=== PATIENT | male | born 1965 | race Caucasian/White ===

== ENCOUNTER 2017-12-26 21:46 | Emergency (ER) | payer MEDICAID, SELFPAY ==
[2017-12-26 21:47] VITALS: BP 154/100; PULSE 80; RESP 16; TEMP 36.3; O2SAT 98; BMI 35.6
--- NOTE | 2017-12-26 22:40 | RAD_ITS ---
STUDY: X-RAY - UNILATERAL RIBS ( RIGHT ) WITH CHEST REASON FOR EXAM: Male, 52 years old. Posterior rib pain. TECHNIQUE - RIBS: 4 view(s) of the ribs. TECHNIQUE - CHEST: PA COMPARISON: None. FINDINGS - RIBS: Normal visualized ribs without a demonstrated fracture. FINDINGS - CHEST: The lungs are clear and expanded. There is no demonstrated pleural abnormality. Normal size heart. Normal mediastinum and king. Normal visualized pulmonary arteries. Normal visualized aortic arch and descending thoracic aorta. Normal visualized thoracic spine. Normal visualized ribs, clavicles, and shoulders. There is no demonstrated abnormality of the visualized soft tissue structures of the upper abdomen. RAD/Ribs Uni Min 3V w/PA Chest IMPRESSION: RIBS: No acute osseous injury. CHEST: No acute cardiopulmonary process. Electronically Signed: Cheryl Marcum MD at 23:00 EDT Tel , Service support ,
[2017-12-26] MEDS: Lidocaine 5% Patch 1 PATCH TOPICAL (22:46)
[2017-12-26] MEDS: Ketorolac 30 MG/ML Syringe IM (22:46)
--- NOTE | 2017-12-26 23:19 | ED.VISSUMM ---
- ER Visit Summary Date of Service: 12/26/17 Chief Complaint: Back pain History of Present Illness: The patient is a 52 M presenting for evaluation secondary to back pain. Patient states that since today he woke up with right-sided posterior rib pain. He denies that there is any sort of injury associated with this. Pain is continuous and seems to cause a mild amount of tingling in his right hand. Denies any bowel or bladder incontinence, denies any fevers, denies any sort of radiation of the legs. Patient states that he does have a history of back pain in the past, but this seems somewhat different. Review of systems otherwise negative. Physical Examination: Vitals: Within normal limits General: Well-nourished well-developed no acute distress Head: Normocephalic atraumatic ENT: Moist mucous membranes Neck: Supple no JVD Cardiovascular: Heart regular rate and rhythm no murmurs Respiratory: Respirations nondistressed, lung sounds clear to auscultation bilaterally Abdominal: Soft, nontender, nondistended, normal bowel sounds, no evidence of abdominal masses or pulsatile mass Back: Normal to inspection, no midline tenderness to palpation, straight leg raise negative bilaterally, tenderness over the right posterior rib line without any evidence of step-offs crepitus or deformity Extremities: Nontender, nonedematous, 2+ radial and PT pulses bilaterally symmetric Skin: Normal color no rash Neuro: 5/5 strength hip flexion, knee flexion, knee extension, dorsiflexion, plantarflexion, EHL. Sensation intact over all dermatomes of the lower extremities bilaterally, 2+ brachioradialis reflexes bilaterally, normal strength of the upper extremities Test Results: Right-sided rib series found to be negative Emergency Department Course and Treatment: Patient presented for evaluation secondary to back pain. X-rays were found to be negative. Patient was given Toradol lidocaine patch and had symptomatic improvement on repeat evaluation. At this point I believe he can safely be discharged that this likely is a thoracic strain. He will be sent home with Naprosyn Flexeril and lidocaine patches. Disposition: Discharge Impression: 1. Right-sided thoracic strain This note was generated with [employer] dictation software. It may contain incorrect words, spelling, and punctuation that were not noted in review of the chart prior to signing ED Disposition - Plan for ED Patient: Disposition: Home or Assisted Living Chief Complaint: Back Diagnosis: Thoracic myofascial strain Instructions: ED Strain Chest Wall Prescriptions: Lidocaine [Lidoderm] 1 ea TP DAILY #10 adh..patch Naproxen [Naprosyn] 500 mg PO BID PRN #20 tab Cyclobenzaprine [Flexeril] 10 mg PO TID PRN #20 tab PRN Reason: Muscle Spasm Referrals: Bruce Barron DO [Primary Care Provider] - 1 Week if not improving
[2017-12-26 23:37] VITALS: BP 147/92; PULSE 90; RESP 20; O2SAT 96
--- NOTE | 2017-12-28 12:52 | ED.RN ---
brandi resendiz called about verification for flexeril script d/t not being signed. verified d/c orders script
== END 2017-12-26 23:38 | disposition home or self-care (01) ==
PROVIDERS: Emergency Provider Emergency Medicine; Family Provider Family Medicine; PCP Family Medicine
DX: S29.012A Strain of muscle and tendon of back wall of thorax, initial encounter (principal); X58.XXXA Exposure to other specified factors, initial encounter; Y93.9 Activity, unspecified; Y92.89 Other specified places as the place of occurrence of the external cause; Y99.9 Unspecified external cause status; Z72.0 Tobacco use
CPT/HCPCS: 71101; 99283

== ENCOUNTER 2019-04-27 10:59 | Emergency (ER) | payer BC, SELFPAY ==
[2019-04-27 11:00] VITALS: BP 155/106; PULSE 77; RESP 16; TEMP 36.8; O2SAT 99; BMI 34.2
--- NOTE | 2019-04-27 11:04 | EKG12_ITS ---
Test Reason : CP Blood Pressure : / mmHG Vent. Rate : 068 BPM Atrial Rate : 068 BPM P-R Int : 190 ms QRS Dur : 104 ms QT Int : 390 ms P-R-T Axes : 031 -32 009 degrees QTc Int : 414 ms Normal sinus rhythm Left axis deviation Abnormal ECG Confirmed by DARELL MURILLO, DAVID ([id number]), supervising film or videotape editor KARRIE JUAREZ ([id number]) on 04/30/2019 11:08:42 AM Referred By: SARAH Confirmed By:DAVID LOZOYA MD
[2019-04-27 11:42] VITALS: BP 147/98; PULSE 65; RESP 16; O2SAT 96
[2019-04-27 11:54] LABS: Absolute Lymphocyte Count 1.35 X10^3/uL (0.83-4.51); Absolute Neutrophil Count 5.3 X10^3/uL (2.0-7.7); Basophil# 0.06 X10^3/uL; Basophil% 0.8 % (0-1); Eosinophil# 0.11 X10^3/uL; Eosinophils% 1.5 % (0-5); Hematocrit 44.3 % (40-54); Hemoglobin 15.2 g/dL (13.0-16.5); Lymphocyte # 1.35 X10^3/ul (4.0); Lymphocyte % 18.4 % (19-41); Mean Corp Hgb Conc 34.3 g/dL (32-36); Mean Corpuscular Hgb 30.6 pg (27.0-32.0); Mean Corpuscular Volume 89.1 fL (80-94); Mean Platelet Vol. 9.3 fl (6.2-12.0); Monocyte# 0.52 X10^3/uL; Monocyte% 7.1 % (0-10); NRBC Flagged by Analyzer 0 % (0-5); Neutrophil # 5.29 X10^3/uL (2.7-7.7); Neutrophil % 71.9 % (47-70); Platelet Count 322 K/mm3 (150-450); RBC Distribution Width CV 11.9 % (11.6-14.6); RBC Distribution Width SD 38.2 fl (35.1-43.9); Red Blood Count 4.97 M/mm3 (4.6-6.2); White Blood Count 7.4 K/mm3 (4.4-11.0)
[2019-04-27 12:10] LABS: Anion Gap 7 (5-15); BUN 12 mg/dL (7-18); BUN/Creat Ratio 13.9 RATIO (10-20); Chloride 107 mmol/L (98-107); Creatinine, Serum 0.86 mg/dL (0.70-1.30); EST Glomerular Filtration Rate 98 mL/min (>60); Est Glom Filt Rate - Afr Amer 119 mL/min (>60); Estimated Creatinine Clearance 110.97 ml/min; Glucose 120 mg/dL (74-106); Potassium 3.7 mmol/L (3.5-5.1); Sodium Level 138 mmol/L (136-145)
--- NOTE | 2019-04-27 12:13 | CT_ITS ---
STUDY: CT BRAIN WITHOUT CONTRAST REASON FOR EXAM: Male, 54 years old. Headaches. Chest pain and shortness of breath. RADIATION DOSAGE (If Supplied By Facility): CTDIvol = ( 44.99 ) mGy, DLP = ( 863.60 ) mGycm TECHNIQUE: Transaxial CT imaging of the brain was performed without administration of intravenous contrast material. Individualized dose optimization techniques were used for this CT. COMPARISON: No relevant priors. FINDINGS: Normal soft tissue structures. Normal calvarium. Normal size ventricles and extra-axial spaces for the patient's age. Normal white matter tracts of the cerebral hemispheres. Normal basal ganglia and thalami. Normal brainstem. Normal cerebellum. There is no intracranial hemorrhage. There are no findings of an acute ischemic infarction. Nodular mucosal thickening along the inferior aspect of the maxillary sinuses bilaterally. CT/Brain/Head without Contrast IMPRESSION: Mucosal thickening along the inferior aspect of the maxillary sinuses bilaterally. Electronically Signed: Wayne Guillermo, at 12:46 EDT , Service support ,
--- NOTE | 2019-04-27 12:36 | RAD_ITS ---
STUDY: X-RAY CHEST REASON FOR EXAM: Male, 54 years old. Chest pain and shortness of breath. TECHNIQUE: PA and lateral views of the chest. COMPARISON: None. FINDINGS: EKG electrodes are seen. The lungs are clear and expanded. There is no demonstrated pleural abnormality. Normal size heart. Normal mediastinum and king. Normal visualized pulmonary arteries. Normal visualized aortic arch and descending thoracic aorta. There are diffuse degenerative changes of the visualized thoracic spine. Normal visualized ribs, clavicles, and shoulders. There is no demonstrated abnormality of the visualized soft tissue structures of the upper abdomen. RAD/Chest PA and Lateral IMPRESSION: No acute abnormality is seen. Electronically Signed: Wayne Guillermo, at 13:00 EDT , Service support ,
[2019-04-27] MEDS: DiphenhydrAMINE 50 MG/ML Syringe 25 MG IV (12:50)
[2019-04-27] MEDS: 0.9% Normal Saline 1,000 ML 999 ML IV (12:50)
[2019-04-27] MEDS: proCHLORPERazine 10 MG/2 ML Vial IV (12:52)
[2019-04-27] MEDS: Ketorolac 30 MG/ML Syringe IV (12:53)
[2019-04-27 12:54] VITALS: PULSE 64; RESP 16; O2SAT 94
[2019-04-27 13:53] VITALS: BP 141/104; PULSE 51; RESP 16; O2SAT 94
--- NOTE | 2019-04-27 14:20 | ED.VIS.GEN ---
History of Present Illness Chief Complaint: Chest Pain Narrative: Patient presented with multiple chief complaints. Patient has an underlying history of hypertension and smoking. Patient states that over the course of the last 3 weeks he has been dealing with a headache. He reports that this is basically a daily headache, but never goes away. He does not really have any exacerbating relieving factors and has not been alleviated by [id number] analgesics. Has been associated with any sort of visual changes numbness or weakness, but is associated with some photophobia and nausea. No recent head injuries to speak of. Patient states that he has hypertension that is poorly controlled, and reports that today he was feeling extremely stressed and had a fleeting moment of chest pain. He describes this as a sharp type pain that was associated with some lightheadedness. Again no exacerbating relieving factors. He denies any cardiovascular history, no history of cardiac work-ups in the past. He denies any DVT or PE risk factors. Review of systems otherwise negative. Past Medical History - Allergies and Home Meds Allergies/Adverse Reactions: Allergies No Known Allergies Allergy (Verified 04/27/19 10:59) Primary Care Physician: Dominick Schuler MD [Primary Care Provider] - 5-7 Days Past Medical History: - - Hypertension Surgical History: - - nasal septal surgery. Smoking Status: Current every day smoker Review of Systems All systems negative except as indicated Cardiovascular: Reports: Chest pain Neurological: Reports: Headache Physical Exam Vital Signs/Narrative: Vital Signs Temp Pulse Resp BP Pulse Ox 04/27/19 13:53 51 L 16 141/104 H 94 04/27/19 12:54 64 16 94 04/27/19 11:42 65 16 147/98 H 96 04/27/19 11:00 98.3 F 77 16 155/106 H 99 Inital Vital Signs reviewed: Yes General: Well nourished, Well developed, No Acute Distress Head: Normocephalic, Atraumatic, - - No temporal artery tenderness to palpation Eyes: Perrl, EOMI, - - Fundi are normal bilaterally with no evidence of retinal hemorrhages ENT: Moist mucous membranes, No rhinorrhea Neck: Supple, Nontender Cardiovascular: Regular rate, Regular rhythm, No murmurs, - - 2+ radial pulses bilaterally symmetric. 2+ PT pulses bilaterally symmetric. Respiratory: No distress, CTA bilaterally, Chest nontender Abdomen: Soft, Nontender, Nondistended, Normal bowel sounds Back: Nontender, Normal Inspection Extremities: Nontender, No edema Skin: Normal color, No rash Neurological: Alert, Oriented x3, Cranial nerves II-XII grossly intact, Normal Strength, Normal Sensation Psychological: Normal affect, Normal Mood Diagnostic/Tx/Re-eval Chest X-Ray - ED: Read by ED Physician, Read by Radiologist, Normal - EKG Initial EKG Interpretation: - - Sinus rhythm at 68 with left axis deviation isoelectric ST segments normal T waves no evidence of acute ischemia or arrhythmia - Medical Decision Making Patient presented with chest pain and headaches. Patient's chest pain work-up was found to be unremarkable including a negative troponin normal EKG and normal chest x-ray. Patient CT brain demonstrated some sinusitis. Patient's pain was treated with Toradol in the emergency department he did have some improvement on subsequent reevaluation. Patient's headache likely secondary to sinusitis will be treated with a course of Augmentin. Patient's chest pain seems rather atypical and his heart score is 3, I do not believe he requires admission. He will follow-up with his primary care physician. ED Disposition - Plan for ED Patient: Disposition: Home or Assisted Living Diagnosis: Sinusitis, Chest pain Instructions: Acute Sinusitis, CHEST PAIN, Uncertain Cause Prescriptions: Amox/Clavulanate Tablet [Augmentin Tablet] 875 mg PO Q12H #28 tab Prescription Printed Referrals: Dominick Schuler MD [Primary Care Provider] - 5-7 Days
[2019-04-27 14:39] VITALS: BP 128/91; PULSE 62; RESP 18; O2SAT 97
== END 2019-04-27 14:40 | disposition home or self-care (01) ==
PROVIDERS: Emergency Provider Emergency Medicine; Family Provider Family Medicine; PCP Family Medicine
DX: J32.9 Chronic sinusitis, unspecified (principal); R07.9 Chest pain, unspecified; I10 Essential (primary) hypertension; Z79.899 Other long term (current) drug therapy; F17.200 Nicotine dependence, unspecified, uncomplicated
CPT/HCPCS: 70450; 71046; 80048; 84484; 85025; 93005; 96361; 96374; 96375; 99284; J7030; A4216

== ENCOUNTER 2023-03-25 20:29 | Emergency (ER) | payer BC, MEDICAID, SELFPAY ==
[2023-03-25 20:30] VITALS: BP 119/89; PULSE 74; RESP 15; TEMP 36.3; O2SAT 98
--- NOTE | 2023-03-25 20:50 | RAD_ITS ---
INDICATION: Trauma, injury with bruising 3rd-5th phalanges EXAMINATION/TECHNIQUE: X-RAY - RIGHT XR Foot Min 3 Views 3 VIEWS COMPARISON: None. FINDINGS: SOFT TISSUES: Forefoot soft tissue swelling. No radiopaque foreign body. BONES/JOINTS: Small cortical fragments at the fifth PIP joint likely from the middle phalanx with cortical irregularity suspicious for nondisplaced fracture of the fifth phalanx. No other findings suspicious for acute fracture. Joint spaces anatomically aligned with degenerative changes of the first MTP joint. No sclerotic or destructive changes observed. RAD/Foot min 3 Views IMPRESSION: Possible nondisplaced fracture fifth middle phalanx. Electronically Signed: Maurilio Ricks MD at 21:55 EDT ,
[2023-03-25] MEDS: oxyCODONE 5 MG Tablet 10 MG PO (22:08)
--- NOTE | 2023-03-25 22:08 | EDS_ITS ---
HPI History of Present Illness Chief Complaint: Lower Extremity Injury Informant: patient Narrative Narrative: 58-year-old male dropped 80 to 100 pounds onto his right foot which is wearing steel toed boots. He notes pain swelling and ecchymosis. He notes limited ability to bear weight. He is not on a blood thinner. [facility] Medical History Foot injury Home Medications amoxicillin 875 mg-potassium clavulanate 125 mg tablet 875 mg (0.875 x 875-125 mg) PO Q12H #28 tabs 04/27/19 [Rx Last Taken Unknown] duloxetine 30 mg capsule,delayed release 30 mg PO DAILY 04/27/19 [History Last Taken Unknown] lisinopril 10 mg-hydrochlorothiazide 12.5 mg tablet 2 tab PO DAILY 04/27/19 [ History Last Taken Unknown] oxycodone 5 mg tablet 5 mg PO Q6H PRN pain 3 days #12 tabs 03/25/23 [Rx Last Taken Unknown] Allergy/AdvReac Type Severity Reaction Status Date / Time No Known Allergies Allergy Verified 03/25/23 20:34 Social History Smoking Status: Unknown if ever smoked ROS ROS ED Constitutional Constitutional ED: Denies chills or weight loss Eyes Eyes: Denies change in vision or diplopia ENT ENT ED: Denies ear pain, rhinorrhea or sore throat Cardiovascular Cardiovascular: Denies chest pain, orthopnea, palpitations or racing heartbeat Respiratory/Chest Respiratory/Chest: Denies cough, dyspnea or orthopnea Gastrointestinal Gastrointestinal: Denies abdominal pain, diarrhea, nausea or vomiting Genitourinary Genitourinary ED: Denies dysuria, hematuria or urinary frequency Musculoskeletal Musculoskeletal: Reports other Details: Right foot pain ; Denies arthralgias or myalgias Integumentary Denies abscess or rash Neurologic Neurologic: Denies headache(s) or weakness Psychiatric Psychiatric: Denies anxiety, depression, suicidal ideation or suicidal thoughts Endocrine Endocrinology: Denies polydipsia, polyphagia or polyuria Allergic/Immunologic Allergic/Immunologic ED: Denies mouth swelling, tongue swelling or urticaria EXAM Physical Exam Const Vital Signs: 03/25/23 20:30 Temperature 97.3 F L Temperature Source Temporal Pulse Rate 74 Respiratory Rate 15 Blood Pressure 119/89 H Blood Pressure Mean 99 Pulse Ox 98 Oxygen Delivery Method Room Air Positive well nourished and well developed General Appearance ED: well developed HEENT Reports normocephalic, head/scalp atraumatic and moist mucous membranes Eyes PERRL and EOMs intact bilaterally Neck no lymphadenopathy, supple and no JVD Resp normal respiratory effort and clear to auscultation bilaterally Cardio regular rate, regular rhythm and no murmurs GI normal to inspection, nondistended, normoactive bowel sounds and non-tender Palpation: soft Back/Spine no CVA tenderness and normal ROM Extremity Extremity Narrative: There is swelling and ecchymosis of the fourth and fifth toe on the right foot. There is also swelling and some mild ecchymosis onto the forefoot to the level of the midfoot of the right foot. Neurovascularly intact. Painful range of motion. There is no subungual hematomas. General Extremety ED: Negative for edema General Extremity: Negative for edema Neuro oriented x3 and CN's II-XII intact bilaterally Sensorium / Orientation: alert Motor Exam: strength 5/5 throughout Psych mental status grossly normal Mood & Affect: Negative for depressed or tearful Skin no rashes or lesions noted and no wounds MDM MDM MDM Narrative Medical decision making narrative: My interpretation of the plain films of the right foot is a nondisplaced transverse fracture through the fourth toe proximal phalanx and the fifth toe middle phalanx. Patient received oxycodone for pain. Prescription for same. He will be placed in a postop shoe and given crutches. I will write him off work for the next several days he should follow-up with podiatry Radiography Diagnostic Testing: Clinical Impression(s) from Imaging Studies Foot X-Ray 03/25/23 20:50 IMPRESSION: Possible nondisplaced fracture fifth middle phalanx. Electronically Signed: Maurilio Ricks MD at 21:55 EDT Reading Location ID and State: [facility] / [place] Tel , Service support , Discharge Plan Triage Chief Complaint: Lower Extremity Injury ED Provider: Dwight Boucher Dx/Rx/DC Orders Clinical Impression: Crush injury of foot, Fracture of toe of right foot Instructions: ED Crush Injury, Foot/Toe, ED Fracture, Toe, Closed Prescriptions: New oxycodone 5 mg tablet 5 mg PO Q6H PRN (Reason: pain) 3 Days Qty: 12 0RF No Action duloxetine 30 MG capsule 30 mg PO DAILY Patient Comments: TAKE 1 CAPSULE BY MOUTH ONCE DAILY lisinopril-hydrochlorothiazide 1 TABLET tablet 2 tab PO DAILY amoxicillin-pot clavulanate 875 MG tablet 875 mg PO Q12H Qty: 28 0RF Primary Care Provider: Dominick Schuler Referrals: Dominick Schuler MD [Primary Care Provider] - Dwight Dean DPM [Med Staff - Active Staff] - 3-5 Days Disposition Disposition: Home, Self Care
== END 2023-03-25 22:23 | disposition home or self-care (01) ==
PROVIDERS: Emergency Provider Emergency Medicine; PCP Family Medicine; Visit Provider Emergency Medicine
DX: S92.514A Nondisplaced fracture of proximal phalanx of right lesser toe(s), initial encounter for closed fracture (principal); S92.524A Nondisplaced fracture of middle phalanx of right lesser toe(s), initial encounter for closed fracture; W20.8XXA Other cause of strike by thrown, projected or falling object, initial encounter
CPT/HCPCS: 73630; 99284

== ENCOUNTER 2023-04-01 12:09 | Emergency (ER) | payer BC, MEDICAID, SELFPAY ==
[2023-04-01 12:10] VITALS: BP 155/105; PULSE 92; RESP 18; TEMP 35.5; O2SAT 99
--- NOTE | 2023-04-01 14:22 | ED.VIS.LOWEX ---
HPI History of Present Illness HPI Narrative: 58-year-old male who has broken toes to his left foot after a shelf broke and the contents of the shelf fell on his foot about a week ago. At that time he was x-rayed. Was diagnosed with a mid phalanx fracture. Today he followed up with Dr. Cristobal who did a repeat x-ray. There was a concern for possible osteomyelitis per the radiologist the [facility] any same over the emergency department. She has no history of diabetes. No fever. No redness. He had no lacerations when the trauma initially occurred or since then. Chief Complaint: Lower Extremity Injury Informant: patient Occured/Mechanism Mechanism/Context: Yes injury and Yes blunt trauma Onset/Context/Timing Onset: Days Context: Sudden Onset Timing: Continuous Quality of Pain: Sharp and Stabbing Current Severity: Moderate Maximum Severity: Moderate Associated Symptoms Associated Symptoms: Negative for Parasthesia, Weakness or Loss of Funtion Narrative Narrative: 8-year-old male with a left foot injury a week ago and was diagnosed with a left small toe middle phalanx fracture. Prior similar symptoms: No Recent Illness/Hospitalization: No PFSH PFSH Medical History Foot injury High cholesterol HTN (hypertension) Home Medications amoxicillin 875 mg-potassium clavulanate 125 mg tablet 875 mg (0.875 x 875-125 mg) PO Q12H #28 tabs 04/27/19 [Rx Last Taken Unknown] duloxetine 30 mg capsule,delayed release 30 mg PO DAILY 04/27/19 [History Last Taken Unknown] lisinopril 10 mg-hydrochlorothiazide 12.5 mg tablet 2 tab PO DAILY 04/27/19 [History Last Taken Unknown] oxycodone 5 mg tablet 5 mg PO Q6H PRN pain 3 days #12 tabs 03/25/23 [Rx Last Taken Unknown] Allergy/AdvReac Type Severity Reaction Status Date / Time No Known Allergies Allergy Verified 03/25/23 20:34 Social History Smoking Status: Current every day smoker tobacco type: cigarettes ROS ROS ED ROS Narrative Denies recent illness. Review of Systems ROS Unobtainable: Denies due to encephalopathy Constitutional Constitutional ED: Denies chills or fever(s) Eyes Eyes: Denies blurry vision ENT ENT ED: Denies ear pain Cardiovascular Cardiovascular: Denies chest pain Respiratory/Chest Respiratory/Chest: Denies cough or dyspnea Gastrointestinal Gastrointestinal: Denies abdominal pain Genitourinary Genitourinary ED: Denies dysuria or hematuria Musculoskeletal Musculoskeletal: Denies arthralgias or back pain Integumentary Denies abscess or Abrasions Neurologic Neurologic: Denies headache(s) Psychiatric Psychiatric: Denies anxiety or depression Endocrine Endocrinology: Denies polydipsia Hematologic/Lymphatic Hematologic/Lymphatic: Denies easy bleeding or easy bruising Allergic/Immunologic Allergic/Immunologic ED: Denies mouth swelling or tongue swelling EXAM Physical Exam Narrative Exam Narrative: 58-year-old male vital signs stable afebrile. No acute distress. HEENT exam unremarkable lungs are clear. Heart regular rhythm. Abdomen soft nontender. Moving all 4 extremities. Neurovascular intact. His right foot is tender and swollen. There is bruising about the top of the foot and also the third, fourth and fifth toes. He has tenderness primarily of the fourth and fifth toes. Skins intact. He has normal DP pulse. He can wiggle his toes. Normal touch sensation. He can do dorsi and plantarflexion of his ankle. His Achilles tendon is intact. There are no lacerations or breaks in the skin. Const Vital Signs: 04/01/23 12:10 Temperature 95.9 F L Temperature Source Temporal Pulse Rate 92 Respiratory Rate 18 Blood Pressure 155/105 H Blood Pressure Mean 121 Pulse Ox 99 Positive well nourished and well developed; Negative for cachectic, contractures or unkempt General Appearance ED: well developed and NAD; Negative for unkempt, cachectic or contractures Nutritional Appearance: Negative for cachectic HEENT Reports moist mucous membranes normocephalic and atraumatic; Negative for trauma or tenderness Eyes PERRL General Eye ED: Negative for other Neck full ROM and supple Thyroid: Negative for tender Lymph Lymphatic: Negative for other Chest Wall inspection of chest normal and palpation of chest normal Chest: Negative for other Resp normal respiratory effort, no retractions and clear to auscultation bilaterally Effort and Inspection: Negative for pain with movement Auscultation: Negative for rales, rhonchi or wheezes Cardio regular rate, regular rhythm, S1 normal heart sound, S2 normal heart sound and no murmurs Rate: Negative for bradycardia or tachycardic GI non-tender, non-distended and no masses Inspection: Negative for abdominal distention Auscultation: normoactive bowel sounds Palpation: soft; Negative for tender or guarding Back/Spine no CVA tenderness General Back: Negative for CVA tenderness Cervical Spine: Negative for cervical spine tenderness Thoracic Spine / Upper Back: Negative for thoracic spinal tenderness Lumbar Spine / Lower Back: Negative for lumbar spinal tenderness Extremity Negative for normal to inspection Extremity Narrative: Left wet machine tender, swollen, bruising. Tender primarily at the fourth and fifth toes. No break in the skin. Neurovascular intact. Able to wiggle his toes. Normal cap refill. Normal touch sensation. Normal DP pulse. No skin wounds or lacerations. General Extremety ED: Yes edema and weight-bearing difficulty General Extremity: edema and weight-bearing difficulty Neuro oriented x3, CN's II-XII intact bilaterally and moves all extremities Sensorium / Orientation: alert, oriented to person, oriented to place and oriented to time; Negative for orientation impaired, confused or lethargic Motor Exam: strength 5/5 throughout Psych mental status grossly normal Appearance: Negative for unkempt Speech: No other Mood & Affect: Negative for anxious Skin no wounds Lesions: no lesions Rashes: no rashes Trauma: Negative for abrasion or laceration MDM MDM MDM Narrative Medical decision making narrative: 58-year-old male injured his foot a week ago. Today was seen in the office and repeat x-rays that were concerning for possible osteomyelitis. Clinically that is very unlikely due to his not diabetic and there are no open wounds. It looks like a broken foot with soft tissue swelling. There is no cellulitis. There are no wounds. I spoke and called his primary care physician. I do not think this patient needs a work-up for osteomyelitis. He has had no fever. I explained to him most likely with the swelling his CRP and sed rate would be elevated. He does not need acute MRI today. I will have him follow-up with podiatry. Patient is comfortable with the plan. I did call his primary care physician, Dr. Schuler and he is okay with the plan also. I did review his foot x-ray from a week ago it looks like the mid phalanx of the fourth and fifth toes are broken. This was only read as 1/5 toe mid phalanx fracture. I believe the fourth mid phalanx is also broken. I did not see the film from the [facility] but they did fax over the radiologist interpretation. History & Record Review Discussion w/independent historian: Patient Discharge Plan Triage Chief Complaint: Lower Extremity Injury ED Provider: Brian Last Dx/Rx/DC Orders Clinical Impression: Fracture of right toe Instructions: ED Fracture, Toe, Closed Prescriptions: No Action duloxetine 30 MG capsule 30 mg PO DAILY Patient Comments: TAKE 1 CAPSULE BY MOUTH ONCE DAILY lisinopril-hydrochlorothiazide 1 TABLET tablet 2 tab PO DAILY amoxicillin-pot clavulanate 875 MG tablet 875 mg PO Q12H Qty: 28 0RF oxycodone 5 mg tablet 5 mg PO Q6H PRN (Reason: pain) 3 Days Qty: 12 0RF Primary Care Provider: Dominick Schuler Referrals: Dominick Schuler MD [Primary Care Provider] - Roger Valdez DPM [Med Staff - Active Staff] - Activity Restrictions/Additional Instructions: I reviewed your x-ray from last week. I think the fourth and fifth toes are both broken on the mid phalanx. It was only read as the small toe a week ago but I think it is both. There is no reason for you to have osteomyelitis. No signs of at this time. Ice and elevate. Motrin and Tylenol for pain. Keep wearing your postop shoe. Follow-up with podiatry for further evaluation. If you develop a fever or red swollen foot not just the swelling from the bruising and trauma needs to be reseen. Disposition Disposition: Home, Self Care
[2023-04-01 16:23] VITALS: BP 134/69; PULSE 72; RESP 16; O2SAT 98
== END 2023-04-01 16:25 | disposition home or self-care (01) ==
PROVIDERS: Emergency Provider Emergency Medicine; PCP Family Medicine; Visit Provider Emergency Medicine
DX: S92.522A Displaced fracture of middle phalanx of left lesser toe(s), initial encounter for closed fracture (principal); F17.210 Nicotine dependence, cigarettes, uncomplicated; E78.00 Pure hypercholesterolemia, unspecified; I10 Essential (primary) hypertension; W20.8XXA Other cause of strike by thrown, projected or falling object, initial encounter
CPT/HCPCS: 99282